=== PATIENT | female | born 2005 | race African-American/Black ===

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

== ENCOUNTER 2025-08-18 05:26 | Inpatient (IN) ==
--- NOTE | 2025-08-10 16:05 | Anesthesiology Consultation ---
Date of Service August 10, 2025 Assessment & Plan (1) Encounter for pre-operative examination: - Per pump tender on 08/10/25: No known infectious disease contacts, current infectious disease symptoms in past 10 days or COVID positive test result in the past 30 days. Chart Review Chart Review: entry operator initiated History Surgery Operation Date: 08/18/25 07:30 Proposed Procedures p Section (Delivery of Baby Through Abdominal Incision) - Shanika Marrero MD, FACOG Height/Weight Height: 5 ft 2 in Weight: 96.162 kg Allergies Allergy/AdvReac Type Severity Reaction Status Date / Time tree nut Allergy Unknown Swelling Verified 08/10/25 15:35 of Lip/Tongue/Throat Medications Home Medications Medication Instructions Recorded Confirmed Last Taken metoclopramide HCl 10 mg tablet 10 mg PO Q6H PRN headache #5 tabs 06/16/25 08/10/25 Unknown vits no.133-ferrous 1 tab PO DAILY 08/10/25 08/10/25 Unknown fumarate 28 mg-folic acid 800 mcg tablet () Past Medical History Medical History (Updated 08/10/25 @ 16:04 by Margi Poon PA-C) Generalized headaches infrequent Past Family History Family History Denies family history of Ovarian cancer Breast cancer Colorectal cancer Past Surgical History Surgical History History of Social History Smoking Status: Never smoker Do You Dip or Chew Tobacco: No Hx Alcohol Use: No Hx Substance Use: No substance use type: does not use Lab Results Anesthesia Preop Results Results Anesthesia Widget: Hgb 13.5 g/dl (12.0-16.0) 06/14/25 Hct 40.4 % (37.0-47.0) 06/14/25 Urine Color Yellow 06/14/25 Urine Appearance Turbid (Clear) A 06/14/25 Urine pH 6.0 (4.5-7.5) 06/14/25 Urine Specific [place] 1.028 (1.000-1.030) 06/14/25 Urine Protein Trace (Negative) H 06/14/25 Urine Glucose (UA) Negative (Negative) 06/14/25 Urine Ketones Trace (Negative) H 06/14/25 Urine Blood Negative (Negative) 06/14/25 Urine Nitrite Negative (Negative) 06/14/25 Urine Bilirubin Negative (Negative) 06/14/25 Urine Urobilinogen Negative (Negative) 06/14/25 Urine Leukocyte Esterase Negative (Negative) 06/14/25 Urine WBC (Auto) 0-5 /hpf (0-5) 06/14/25 Urine RBC (Auto) 0-2 /hpf (0-2) 06/14/25 Urine Hyaline Casts (Auto) 0-2 /lpf (0-2) 06/14/25 Urine Epithelial Cells (Auto) 0-2 /hpf (0-2) 06/14/25 Urine Bacteria (Auto) None Seen (None Seen) 06/14/25
--- NOTE | 2025-08-17 20:14 | History & Physical Report ---
Date of Service August 17, 2025 Assessment & Plan (1) 39 weeks gestation of : (2) Previous delivery affecting , antepartum: Plan Patient will be admitted on day of delivery for planned repeat c/s. Consent reviewed and signed. Preop and postop instructions reviewed. Labs am of surgery. History of Present Illness Chief Complaint: planned repeat c/s Primary Care Provider: Matt Fried MD 19yo at 39+wks ega presents on day of admission of planned repeat c/s. Patient denies ctx, rom or vb. +FM. PNC c/b 1. prior c/s, desires repeat c/s PNL rhpos, ri, gbs neg OBH: g1, c/s x 1 GY[facility]: prior h/o CT Allergies Allergy/AdvReac Type Severity Reaction Status Date / Time tree nut Allergy Unknown Swelling Verified 08/17/25 11:41 of Lip/Tongue/Throat Home Medications Medication Instructions Recorded Confirmed Type metoclopramide HCl 10 mg tablet 10 mg PO Q6H PRN headache #5 tabs 06/16/25 08/17/25 Rx vits no.133-ferrous 1 tab PO DAILY 08/10/25 08/17/25 History fumarate 28 mg-folic acid 800 mcg tablet () Patient History Medical History Generalized headaches infrequent Surgical History History of Family History Denies family history of Ovarian cancer Breast cancer Colorectal cancer Social History (Updated 01/20/25 @ 09:52 by Federica Finnegan) Smoking Status: Never smoker Do You Dip or Chew Tobacco: No; Hx Alcohol Use: No Hx Substance Use: No Preferred Language: Welsh Communication Ability: Effective Compliance Officer Required: No Beliefs That Will Affect Care: None marital status: Single marital status details: erica Asif (23) [phone] Current Living Situation: Family and Significant Other Current Living Situation Comment: lives with fob, daughter, dog, cat-fob changing litter 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
[2025-08-18] MEDS ORDERED: SODIUM CHLORIDE 0.9% 100 ML IV PRN (05:49)
[2025-08-18] MEDS ORDERED: INFLUENZA VACC TS2025-26(6m+)/PF (IIV3) 0.5mL Syr IM ONE (05:49)
[2025-08-18] MEDS: LACTATED RINGER'S 1,000 ML IV SCH ×2 (05:52→06:53)
[2025-08-18] MEDS: ACETAMINOPHEN 500 MG TAB PO SCH (06:03)
[2025-08-18 06:04] LABS: Hematocrit (blood only) 37.3 % (37.0-47.0); Hemoglobin 12.3 g/dl (12.0-16.0); Mean Corpuscular Hemoglobin 29.8 pg (25.0-34.0); Mean Corpuscular Volume 90.3 fL (80.0-100.0); Platelet Count 190 K/uL (130-400); RDW Standard Deviation 43.4 fL (36.4-46.3); Red Blood Count 4.13 M/uL (4.20-5.40); White Blood Count 8.41 K/ul (4.8-10.8)
[2025-08-18] MEDS ORDERED: DEXAMETHASONE SOD INJ 4 MG/ML VIAL ONE (06:27)
[2025-08-18] MEDS ORDERED: MoRPHine SULFATE PF 1 MG/ML 10 ML AMP/VIAL ONE (06:27)
[2025-08-18] MEDS ORDERED: PHENYLEPHRINE HCL 25 MG/250 ML NSS IV ONE (06:27)
[2025-08-18] MEDS ORDERED: OXYTOCIN 10 UNITS/ML VIAL ONE (06:27)
[2025-08-18] MEDS ORDERED: ONDANSETRON INJ 2 MG/ML 2 ML VIAL ONE (06:27)
--- NOTE | 2025-08-18 07:20 | History & Physical Bridge Note ---
Date of Service August 18, 2025 History & Physical Bridge Note I have examined the patient, reviewed the History & Physical and in the interval since the performance of the History & Physical I have noted the following changes of clinical significance: no changes noted
[2025-08-18] MEDS: CITRIC ACID/SODIUM CITRATE 15 ML UDC PO SCH (07:27)
[2025-08-18] MEDS ORDERED: NALOXONE HCL 1 MG in SODIUM CHLORIDE 0.9% 1,000 ML IV PRN (07:55)
[2025-08-18] MEDS ORDERED: PROMETHAZINE 6.25 MG/50.25 ML BAG IV PRN (07:55)
[2025-08-18] MEDS ORDERED: LACTATED RINGER'S 500 ML IV PRN (07:55)
[2025-08-18] MEDS ORDERED: NALOXONE HCL 0.4 MG/1 ML VIAL/CARP IV PRN (07:55)
[2025-08-18] MEDS ORDERED: diphenhydrAMINE 50 MG/ML VIAL IV PRN (07:55)
[2025-08-18] MEDS ORDERED: NALBUPHINE HCL INJ 10 MG/ML AMP IV PRN (07:55)
[2025-08-18] MEDS ORDERED: NALOXONE HCL 0.08 MG in SYRINGE 1.8 ML IV PRN (07:55)
[2025-08-18] MEDS ORDERED: ONDANSETRON INJ 2 MG/ML 2 ML VIAL IV PRN (07:55)
[2025-08-18] MEDS ORDERED: MoRPHine SULFATE PF 1 MG/ML 10 ML AMP/VIAL INT SPINAL ONE (07:55)
[2025-08-18] MEDS ORDERED: DC INTRASPINAL MORPHINE SCH (08:00)
[2025-08-18] MEDS ORDERED: PHENYLEPHRINE 100MCG/ML 5ML SYR ONE (08:00)
[2025-08-18] MEDS ORDERED: SODIUM CHLORIDE 0.9% 1,000 ML IV SCH (08:00)
[2025-08-18] MEDS ORDERED: NO NARCOTICS OR SEDATIVES SCH (08:00)
--- NOTE | 2025-08-18 08:36 | Operative Report ---
Post Operative Report Pre & Post Diagnosis Operation Date: 08/18/25 07:30 Pre-Op Diagnosis: (1) 39 weeks gestation of : (2) Previous delivery affecting , antepartum (3) Desires repeat section Post-Op Diagnosis: (1) 39 weeks gestation of : (2) Previous delivery affecting , antepartum: (3) Desires repeat section I identified the patient and participated in the time-out.: Yes Procedure Operation Date: 08/18/25 07:30 Actual Procedures p Repeat Low Transverse Section (Delivery of Baby Through Abdominal Incision) Delivery of live female child at 0758 - Shanika Marrero MD, FACOG Surgeon Shanika Marrero MD, FACOG Sap Specialist Vielka Quantitative Blood Loss (QBL) 423 Findings Consistent with Post-Op Diagnosis (viable female, apgars pending, normal uterus tubes and ovaries bilaterally) Fluids 1000cc Specimens cord blood Drains moss Anesthesia Type Spinal Complications none Disposition Accompanied Patient To Recovery: No Disposition: L&D Indications 19yo at 39+wks for planned repeat c/s. Description of Procedure The patient was taken to the operating room and identified. After adequate anesthesia was obtained, she was placed in the supine position with a leftward tilt on the operating table and prepped and draped in the usual sterile fashion. A moss catheter had already been placed. The knife was used to create a Pfannensteil skin incision that was carried down to the underlying layer of fascia. The fascia was nicked in the midline and this opening was extended laterally using Godoy scissors. Karan clamps were placed on the superior and inferior aspect of the fascial incision tenting it upward and the underlying rectus muscles were dissected off the overlying fascia both sharply and bluntly using Godoy scissors. The rectus muscles were bluntly in the midline. The peritoneal cavity was bluntly entered into. This opening was stretched. The bladder blade was placed. The vesicouterine peritoneum was elevated and opened up into and the bladder flap was created digitally and bladder blade was replaced. The knife was used to create a hysterotomy and this opening was stretched. The operators hand was placed through the hysterotomy and the bladder blade was removed. The head was elevated and flexed and with fundal pressure the head was delivered. The shoulders and body were rapidly delivered. The cord was clamped and cut and the 's mouth and nares were bulb suction. The was handed off to the awaiting pediatricians. Cord blood was obtained. The placenta was manually expressed. The uterus was e xteriorized and cleared of all clots and debris. Dilute IV Pitocin was begun. The uterine tone was improving. The hysterotomy was closed in a running interlocking fashion using 0 Vicryl followed by a second imbricating layer of 0 Vicryl. The hysterotomy was hemostatic. The pelvis was irrigated. The uterus was returned to the abdomen. The gutters were cleared of all clots and debris. The hysterotomy was reinspected and noted to be hemostatic. The fascia was then closed in running fashion using 0 Vicryl. The subcutaneous fat was copiously irrigated and reapproximated using 2-0 chromic. The skin was closed in a subcuticular fashion using 4-0 monocryl. At this point the procedure was terminated. The patient was transferred to the recovery room in stable condition. All sponge, lap and needle counts are correct x2. I attest to the content of the Intraoperative Record and any orders documented therein. Any exceptions are noted below. OB Procedure Charges 54751
[2025-08-18] MEDS ORDERED: BENZOCAINE 20% SPRY 85 APPLN/85 GM CAN EXT PRN (08:56)
[2025-08-18] MEDS ORDERED: SENNA 8.6 MG TAB PO PRN (08:56)
[2025-08-18] MEDS ORDERED: MAGNESIUM HYDROXIDE SUSP 30 ML UDC PO PRN (08:56)
[2025-08-18] MEDS ORDERED: CALCIUM CARBONATE 500 MG CHEWABLE TAB PO PRN (08:56)
[2025-08-18] MEDS ORDERED: HYDROCORTISONE ACETATE 25 MG SUPP PR PRN (08:56)
[2025-08-18] MEDS ORDERED: LACTATED RINGER'S 1,000 ML IV SCH (09:00)
[2025-08-18] MEDS: DIPHTHER/TETAN/PERTUS Vaccine (Tdap, Adol/Adult) 0.5mL IM ONE (09:20)
[2025-08-18] MEDS: KETOROLAC 30 MG/ML VIAL IV SCH (09:26)
[2025-08-18] MEDS: OXYTOCIN 20 UNITS/LR 1,002 ML IV SCH (09:55)
[2025-08-18] MEDS: METHYLERGONOVINE MALEATE 0.2 MG/ML AMP ONE (10:24)
--- NOTE | 2025-08-18 10:36 | Obstetrical Progress Note ---
Date of Service August 18, 2025 Assessment & Plan (1) S/P section: (2) Uterine atony: Plan will see how uterus responds to additional agents and sweeping out blood clots at os. await cbc. likely with OR blood loss about 1100cc total so far. Admission and Anticipated Discharge Date Admission Date: August 18, 2025 Subjective ctsp due to vaginal bleeding. she is on dilute pit. about 350cc on chux on my arrival Review of Systems Constitutional: as per Subjective / HPI (denies lightheadedness or dizziness. ) Physical Exam Constitutional: WD/WN, vitals as above Genitourinary: OB Exam Abdomen: + fundal height (firm and 2-3cm below umbilicus. ) bedside exam BOSTON with clots, extruded about 250cc more. rectal cytotec placed 1000mcg and im methergine 0.2mg given, dilute pit infusion increased. cbc ordered. t&s so far in place. Results & Data Vital Signs (Past 12 Hours) Vital Signs Temp Pulse Resp BP Pulse Ox O2 Del Method 08/18/25 10:28 79 100 08/18/25 10:22 73 105/73 93 08/18/25 10:21 71 100 08/18/25 10:18 70 113/75 08/18/25 10:16 71 99 08/18/25 10:11 75 100 08/18/25 10:06 81 100 08/18/25 10:01 80 96 08/18/25 09:56 67 99 08/18/25 09:51 70 99 08/18/25 09:49 77 123/62 08/18/25 09:46 62 99 08/18/25 09:45 97.7 F 69 16 123/62 99 08/18/25 09:41 88 99 08/18/25 09:36 80 100 08/18/25 09:35 97.5 F L 80 14 95/53 L 97 08/18/25 09:35 61 95/53 L 08/18/25 09:31 84 100 08/18/25 09:26 99 08/18/25 09:26 90 08/18/25 09:26 81 104/55 L 08/18/25 09:25 97.7 F 81 16 104/55 L 100 08/18/25 09:21 87 99 08/18/25 09:16 83 105/60 98 08/18/25 09:15 97.5 F L 92 H 16 105/60 100 08/18/25 09:11 82 99 08/18/25 09:06 87 105/61 96 08/18/25 09:05 97.5 F L 96 H 18 105/61 98 08/18/25 09:01 98 H 100 08/18/25 08:56 86 97 08/18/25 08:55 97.7 F 92 H 16 106/55 L 98 08/18/25 08:55 96 H 106/55 L 08/18/25 08:51 94 H 99 08/18/25 08:46 99 08/18/25 08:46 93 H 08/18/25 08:46 75 101/54 L 08/18/25 08:45 97.7 F 94 H 18 101/54 L 99 08/18/25 08:41 79 101/49 L 99 08/18/25 07:24 80 130/74 08/18/25 06:59 Room Air 08/18/25 05:40 97.9 F 18 08/18/25 05:36 71 122/71 PG Care Time/CCT Total # of Minutes Spent Total Time Spent with Patient: Total time spent is greater than 50% in coordination of care (as documented) at patient's floor/unit and/or counseling patient: Coding Level of Care Code None Diagnoses S/P section Z98.891 Uterine atony O62.2
[2025-08-18 10:57] LABS: Hematocrit (blood only) 39.1 % (37.0-47.0); Hemoglobin 12.9 g/dl (12.0-16.0); Mean Corpuscular Hemoglobin 30.1 pg (25.0-34.0); Mean Corpuscular Volume 91.4 fL (80.0-100.0); Platelet Count 193 K/uL (130-400); RDW Standard Deviation 43.6 fL (36.4-46.3); Red Blood Count 4.28 M/uL (4.20-5.40); White Blood Count 9.42 K/ul (4.8-10.8)
--- NOTE | 2025-08-18 11:44 | Obstetrical Progress Note ---
Date of Service August 18, 2025 Assessment & Plan (1) Uterine atony: (2) S/P section: Plan adelso in place. will monitor bleeding, if after one hr, no significant blood in canister or suction. will stop suction and deflate balloon in vagina and observe. pt and partner aware of all of this. they are aware of hgb thus far. Admission and Anticipated Discharge Date Admission Date: August 18, 2025 Subjective reeval of bleeding, with continued clots and blood. last check bleeding was lessening at 89cc, but now ? if worsening. Physical Exam Genitourinary: bedside exam, sve, with BOSTON not contracted and clots, despite ff 2 down, informed consent obtained to proceed with adelso device, device placed balloon inflated, 60cc. to wall suctioned with minimal return of blood to tubing. device checked for placement and was adequate. hgb did return 12.9 Results & Data Vital Signs (Past 12 Hours) Vital Signs Temp Pulse Resp BP Pulse Ox O2 Del Method 08/18/25 11:36 69 91 08/18/25 11:35 97.5 F L 75 16 130/67 96 08/18/25 11:34 81 97 08/18/25 11:33 75 130/67 08/18/25 11:29 77 100 08/18/25 11:28 66 92 08/18/25 11:24 72 100 08/18/25 11:22 76 121/81 08/18/25 11:21 79 91 08/18/25 11:20 97.5 F L 72 12 121/81 100 08/18/25 11:19 77 97 08/18/25 11:14 69 93 08/18/25 11:13 77 99 08/18/25 11:08 95 H 100 08/18/25 11:05 72 92 08/18/25 11:03 88 100 08/18/25 10:58 68 95 08/18/25 10:57 72 92 08/18/25 10:53 78 100 08/18/25 10:51 88 90 08/18/25 10:48 100 08/18/25 10:48 72 08/18/25 10:48 81 106/78 08/18/25 10:44 71 107/76 08/18/25 10:43 67 100 08/18/25 10:40 81 90 08/18/25 10:38 69 107/77 98 08/18/25 10:33 72 100 08/18/25 10:28 79 100 08/18/25 10:22 73 105/73 93 08/18/25 10:21 71 100 08/18/25 10:18 70 113/75 08/18/25 10:16 71 99 08/18/25 10:11 75 100 08/18/25 10:06 81 100 08/18/25 10:01 80 96 08/18/25 09:56 67 99 08/18/25 09:51 70 99 08/18/25 09:49 77 123/62 08/18/25 09:46 62 99 08/18/25 09:45 97.7 F 69 16 123/62 99 08/18/25 09:41 88 99 08/18/25 09:36 80 100 08/18/25 09:35 97.5 F L 80 14 95/53 L 97 08/18/25 09:35 61 95/53 L 08/18/25 09:31 84 100 08/18/25 09:26 99 08/18/25 09:26 90 08/18/25 09:26 81 104/55 L 08/18/25 09:25 97.7 F 81 16 104/55 L 100 08/18/25 09:21 87 99 08/18/25 09:16 83 105/60 98 08/18/25 09:15 97.5 F L 92 H 16 105/60 100 08/18/25 09:11 82 99 08/18/25 09:06 87 105/61 96 08/18/25 09:05 97.5 F L 96 H 18 105/61 98 08/18/25 09:01 98 H 100 08/18/25 08:56 86 97 08/18/25 08:55 97.7 F 92 H 16 106/55 L 98 08/18/25 08:55 96 H 106/55 L 08/18/25 08:51 94 H 99 08/18/25 08:46 99 08/18/25 08:46 93 H 08/18/25 08:46 75 101/54 L 08/18/25 08:45 97.7 F 94 H 18 101/54 L 99 08/18/25 08:41 79 101/49 L 99 08/18/25 07:24 80 130/74 08/18/25 06:59 Room Air 08/18/25 05:40 97.9 F 18 08/18/25 05:36 71 122/71 PG Care Time/CCT Total # of Minutes Spent Total Time Spent with Patient: Total time spent is greater than 50% in coordination of care (as documented) at patient's floor/unit and/or counseling patient: Coding Level of Care Code None Diagnoses Uterine atony O62.2 S/P section Z98.891
--- NOTE | 2025-08-18 12:36 | Obstetrical Progress Note ---
Date of Service August 18, 2025 Assessment & Plan Admission and Anticipated Discharge Date Admission Date: August 18, 2025 Subjective Patient sitting in bed, awake, comfortable. Vitals stable. 35cc total QBL after insertion of Evelin. at 12:30p, Evelin balloon deflated and taken off suction. Will continue to monitor. Results & Data Vital Signs (Past 12 Hours) Vital Signs Temp Pulse Resp BP Pulse Ox O2 Del Method 08/18/25 12:34 86 100 08/18/25 12:29 78 100 08/18/25 12:24 82 100 08/18/25 12:21 84 131/63 08/18/25 12:19 81 100 08/18/25 12:14 83 100 08/18/25 12:09 89 100 08/18/25 12:05 36.5 C 86 14 120/57 L 100 08/18/25 12:05 90 120/57 L 08/18/25 12:04 87 100 08/18/25 11:59 83 100 08/18/25 11:54 86 100 08/18/25 11:50 36.4 C L 90 16 132/58 L 100 08/18/25 11:50 76 132/58 L 08/18/25 11:49 76 100 08/18/25 11:44 84 100 08/18/25 11:41 74 90 08/18/25 11:39 79 100 08/18/25 11:36 69 91 08/18/25 11:35 36.4 C L 75 16 130/67 96 08/18/25 11:34 81 97 08/18/25 11:33 75 130/67 08/18/25 11:29 77 100 08/18/25 11:28 66 92 08/18/25 11:24 72 100 08/18/25 11:22 76 121/81 08/18/25 11:21 79 91 08/18/25 11:20 36.4 C L 72 12 121/81 100 08/18/25 11:19 77 97 08/18/25 11:14 69 93 08/18/25 11:13 77 99 08/18/25 11:08 95 H 100 08/18/25 11:05 72 92 08/18/25 11:03 88 100 08/18/25 10:58 68 95 08/18/25 10:57 72 92 08/18/25 10:53 78 100 08/18/25 10:51 88 90 08/18/25 10:48 100 08/18/25 10:48 72 08/18/25 10:48 81 106/78 08/18/25 10:44 71 107/76 08/18/25 10:43 67 100 08/18/25 10:40 81 90 08/18/25 10:38 69 107/77 98 08/18/25 10:33 72 100 08/18/25 10:28 79 100 08/18/25 10:22 73 105/73 93 08/18/25 10:21 71 100 08/18/25 10:18 70 113/75 08/18/25 10:16 71 99 08/18/25 10:11 75 100 08/18/25 10:06 81 100 08/18/25 10:01 80 96 08/18/25 09:56 67 99 08/18/25 09:51 70 99 08/18/25 09:49 77 123/62 08/18/25 09:46 62 99 08/18/25 09:45 36.5 C 69 16 123/62 99 08/18/25 09:41 88 99 08/18/25 09:36 80 100 08/18/25 09:35 36.4 C L 80 14 95/53 L 97 08/18/25 09:35 61 95/53 L 08/18/25 09:31 84 100 08/18/25 09:26 99 08/18/25 09:26 90 08/18/25 09:26 81 104/55 L 08/18/25 09:25 36.5 C 81 16 104/55 L 100 08/18/25 09:21 87 99 08/18/25 09:16 83 105/60 98 08/18/25 09:15 36.4 C L 92 H 16 105/60 100 08/18/25 09:11 82 99 08/18/25 09:06 87 105/61 96 08/18/25 09:05 36.4 C L 96 H 18 105/61 98 08/18/25 09:01 98 H 100 08/18/25 08:56 86 97 08/18/25 08:55 36.5 C 92 H 16 106/55 L 98 08/18/25 08:55 96 H 106/55 L 08/18/25 08:51 94 H 99 08/18/25 08:46 99 08/18/25 08:46 93 H 08/18/25 08:46 75 101/54 L 08/18/25 08:45 36.5 C 94 H 18 101/54 L 99 08/18/25 08:41 79 101/49 L 99 08/18/25 07:24 80 130/74 08/18/25 06:59 Room Air 08/18/25 05:40 36.6 C 18 08/18/25 05:36 71 122/71 PG Care Time/CCT Total # of Minutes Spent Total Time Spent with Patient: Total time spent is greater than 50% in coordination of care (as documented) at patient's floor/unit and/or counseling patient: Coding Level of Care Code None
[2025-08-18] MEDS: METHYLERGONOVINE MALEATE 0.2 MG/ML AMP IM STA (13:07)
[2025-08-18] MEDS: HYDROmorphone INJ 0.5 MG/0.5 ML SYR IV PRN (14:26)
--- NOTE | 2025-08-18 15:09 | Obstetrical Progress Note ---
Date of Service August 18, 2025 Assessment & Plan (1) S/P section: (2) hemorrhage: (3) Uterine atony: Plan ok to move to floor. enc po fluids. leave moss in for now and at 6pm can see if ok to remove. pt agreeable. Admission and Anticipated Discharge Date Admission Date: August 18, 2025 Subjective pt feels well, drinking water. bleeding greatly decreased and adelso has been not on suction for >2hrs. Physical Exam Constitutional: WD/WN, vitals as above Genitourinary: ADELSO removed. pt kayleigh well. moss in place, last 3hr urine out is 100cc Results & Data Vital Signs (Past 12 Hours) Vital Signs Temp Pulse Resp BP Pulse Ox O2 Del Method 08/18/25 14:57 80 88 L 08/18/25 14:54 73 100 08/18/25 14:50 85 123/70 08/18/25 14:49 82 100 08/18/25 14:44 88 100 08/18/25 14:39 81 100 08/18/25 14:35 77 16 125/76 100 08/18/25 14:35 82 125/76 08/18/25 14:34 78 100 08/18/25 14:29 91 H 100 08/18/25 14:24 86 100 08/18/25 14:20 98 H 16 133/78 100 08/18/25 14:20 92 H 133/78 08/18/25 14:19 97 H 100 08/18/25 14:14 85 100 08/18/25 14:09 92 H 100 08/18/25 14:05 84 16 124/71 100 08/18/25 14:05 80 124/71 08/18/25 14:04 87 100 08/18/25 13:59 76 100 08/18/25 13:54 86 100 08/18/25 13:50 97.7 F 89 14 122/66 100 08/18/25 13:50 74 122/66 08/18/25 13:49 75 100 08/18/25 13:44 84 100 08/18/25 13:39 92 H 100 08/18/25 13:35 85 16 122/69 100 08/18/25 13:35 77 122/69 08/18/25 13:34 78 100 08/18/25 13:29 81 100 08/18/25 13:24 82 100 08/18/25 13:20 84 16 139/66 100 08/18/25 13:20 78 139/66 08/18/25 13:19 81 100 08/18/25 13:14 79 100 08/18/25 13:09 92 H 100 08/18/25 13:05 90 14 134/70 100 08/18/25 13:05 94 H 134/70 08/18/25 13:04 94 H 100 08/18/25 12:59 83 100 08/18/25 12:54 87 100 08/18/25 12:52 80 131/63 08/18/25 12:50 97.7 F 80 16 131/63 100 08/18/25 12:49 82 100 08/18/25 12:44 78 100 08/18/25 12:39 89 100 08/18/25 12:35 76 16 146/66 H 100 08/18/25 12:35 86 146/66 H 08/18/25 12:34 86 100 08/18/25 12:29 78 100 08/18/25 12:24 82 100 08/18/25 12:21 84 131/63 08/18/25 12:20 84 16 131/63 100 08/18/25 12:19 81 100 08/18/25 12:14 83 100 08/18/25 12:09 89 100 08/18/25 12:05 97.7 F 86 14 120/57 L 100 08/18/25 12:05 90 120/57 L 08/18/25 12:04 87 100 08/18/25 11:59 83 100 08/18/25 11:54 86 100 08/18/25 11:50 97.5 F L 90 16 132/58 L 100 08/18/25 11:50 76 132/58 L 08/18/25 11:49 76 100 08/18/25 11:44 84 100 08/18/25 11:41 74 90 08/18/25 11:39 79 100 08/18/25 11:36 69 91 08/18/25 11:35 97.5 F L 75 16 130/67 96 08/18/25 11:34 81 97 08/18/25 11:33 75 130/67 08/18/25 11:29 77 100 08/18/25 11:28 66 92 08/18/25 11:24 72 100 08/18/25 11:22 76 121/81 08/18/25 11:21 79 91 08/18/25 11:20 97.5 F L 72 12 121/81 100 08/18/25 11:19 77 97 08/18/25 11:14 69 93 08/18/25 11:13 77 99 08/18/25 11:08 95 H 100 08/18/25 11:05 72 92 08/18/25 11:03 88 100 08/18/25 10:58 68 95 08/18/25 10:57 72 92 08/18/25 10:53 78 100 08/18/25 10:51 88 90 08/18/25 10:48 100 08/18/25 10:48 72 08/18/25 10:48 81 106/78 08/18/25 10:44 71 107/76 08/18/25 10:43 67 100 08/18/25 10:40 81 90 08/18/25 10:38 69 107/77 98 08/18/25 10:33 72 100 08/18/25 10:28 79 100 08/18/25 10:22 73 105/73 93 08/18/25 10:21 71 100 08/18/25 10:18 70 113/75 08/18/25 10:16 71 99 08/18/25 10:11 75 100 08/18/25 10:06 81 100 08/18/25 10:01 80 96 08/18/25 09:56 67 99 08/18/25 09:51 70 99 08/18/25 09:49 77 123/62 08/18/25 09:46 62 99 08/18/25 09:45 97.7 F 69 16 123/62 99 08/18/25 09:41 88 99 08/18/25 09:36 80 100 08/18/25 09:35 97.5 F L 80 14 95/53 L 97 08/18/25 09:35 61 95/53 L 08/18/25 09:31 84 100 08/18/25 09:26 99 08/18/25 09:26 90 08/18/25 09:26 81 104/55 L 08/18/25 09:25 97.7 F 81 16 104/55 L 100 08/18/25 09:21 87 99 08/18/25 09:16 83 105/60 98 08/18/25 09:15 97.5 F L 92 H 16 105/60 100 08/18/25 09:11 82 99 08/18/25 09:06 87 105/61 96 08/18/25 09:05 97.5 F L 96 H 18 105/61 98 08/18/25 09:01 98 H 100 08/18/25 08:56 86 97 08/18/25 08:55 97.7 F 92 H 16 106/55 L 98 08/18/25 08:55 96 H 106/55 L 08/18/25 08:51 94 H 99 08/18/25 08:46 99 08/18/25 08:46 93 H 08/18/25 08:46 75 101/54 L 08/18/25 08:45 97.7 F 94 H 18 101/54 L 99 08/18/25 08:41 79 101/49 L 99 08/18/25 07:24 80 130/74 08/18/25 06:59 Room Air 08/18/25 05:40 97.9 F 18 08/18/25 05:36 71 122/71 PG Care Time/CCT Total # of Minutes Spent Total Time Spent with Patient: Total time spent is greater than 50% in coordination of care (as documented) at patient's floor/unit and/or counseling patient: Coding Level of Care Code None Diagnoses S/P section Z98.891 hemorrhage O72.1 Uterine atony O62.2
[2025-08-18] MEDS: ACETAMINOPHEN 325 MG TAB PO SCH (16:08)
[2025-08-18] MEDS: SIMETHICONE 80 MG CHEW PO SCH (16:08)
--- NOTE | 2025-08-18 18:35 | Anesthesiology Progress Note ---
Date of Service August 18, 2025 Anesthesia Post Procedure Vital Signs Vital Signs: Temp Pulse Pulse Resp BP BP Pulse Ox 08/18/25 18:15 16 99 08/18/25 17:15 16 99 08/18/25 16:15 18 100 08/18/25 15:32 88 100 08/18/25 15:30 18 100 08/18/25 15:30 08/18/25 15:30 97.7 F 78 18 127/84 100 08/18/25 15:27 84 100 08/18/25 15:23 83 91 08/18/25 15:22 83 98 08/18/25 15:17 83 100 08/18/25 15:12 85 100 08/18/25 15:07 92 H 100 08/18/25 14:57 80 88 L 08/18/25 14:54 73 100 08/18/25 14:50 98.4 F 103 H 18 123/70 100 08/18/25 14:50 85 123/70 08/18/25 14:49 82 100 08/18/25 14:44 88 100 08/18/25 14:39 81 100 08/18/25 14:35 77 16 125/76 100 08/18/25 14:35 82 125/76 08/18/25 14:34 78 100 08/18/25 14:29 91 H 100 08/18/25 14:24 86 100 08/18/25 14:20 98 H 16 133/78 100 08/18/25 14:20 92 H 133/78 08/18/25 14:19 97 H 100 08/18/25 14:14 85 100 08/18/25 14:09 92 H 100 08/18/25 14:05 84 16 124/71 100 08/18/25 14:05 80 124/71 08/18/25 14:04 87 100 08/18/25 13:59 76 100 08/18/25 13:54 86 100 08/18/25 13:50 97.7 F 89 14 122/66 100 08/18/25 13:50 74 122/66 08/18/25 13:49 75 100 08/18/25 13:44 84 100 08/18/25 13:39 92 H 100 08/18/25 13:35 85 16 122/69 100 08/18/25 13:35 77 122/69 08/18/25 13:34 78 100 08/18/25 13:29 81 100 08/18/25 13:24 82 100 08/18/25 13:20 84 16 139/66 100 08/18/25 13:20 78 139/66 08/18/25 13:19 81 100 08/18/25 13:14 79 100 08/18/25 13:09 92 H 100 08/18/25 13:05 90 14 134/70 100 08/18/25 13:05 94 H 134/70 08/18/25 13:04 94 H 100 08/18/25 12:59 83 100 08/18/25 12:54 87 100 08/18/25 12:52 80 131/63 08/18/25 12:50 97.7 F 80 16 131/63 100 08/18/25 12:49 82 100 08/18/25 12:44 78 100 08/18/25 12:39 89 100 08/18/25 12:35 76 16 146/66 H 100 08/18/25 12:35 86 146/66 H 08/18/25 12:34 86 100 08/18/25 12:29 78 100 08/18/25 12:24 82 100 08/18/25 12:21 84 131/63 08/18/25 12:20 84 16 131/63 100 08/18/25 12:19 81 100 08/18/25 12:14 83 100 08/18/25 12:09 89 100 08/18/25 12:05 97.7 F 86 14 120/57 L 100 08/18/25 12:05 90 120/57 L 08/18/25 12:04 87 100 08/18/25 11:59 83 100 08/18/25 11:54 86 100 08/18/25 11:50 97.5 F L 90 16 132/58 L 100 08/18/25 11:50 76 132/58 L 08/18/25 11:49 76 100 08/18/25 11:44 84 100 08/18/25 11:41 74 90 08/18/25 11:39 79 100 08/18/25 11:36 69 91 08/18/25 11:35 97.5 F L 75 16 130/67 96 08/18/25 11:34 81 97 08/18/25 11:33 75 130/67 10/03/25 11:29 77 100 08/18/25 11:28 66 92 08/18/25 11:24 72 100 08/18/25 11:22 76 121/81 08/18/25 11:21 79 91 08/18/25 11:20 97.5 F L 72 12 121/81 100 08/18/25 11:19 77 97 08/18/25 11:14 69 93 08/18/25 11:13 77 99 08/18/25 11:08 95 H 100 08/18/25 11:05 72 92 08/18/25 11:03 88 100 08/18/25 10:58 68 95 08/18/25 10:57 72 92 08/18/25 10:53 78 100 08/18/25 10:51 88 90 08/18/25 10:48 100 08/18/25 10:48 72 08/18/25 10:48 81 106/78 08/18/25 10:44 71 107/76 08/18/25 10:43 67 100 08/18/25 10:40 81 90 08/18/25 10:38 69 107/77 98 08/18/25 10:33 72 100 08/18/25 10:28 79 100 08/18/25 10:22 73 105/73 93 08/18/25 10:21 71 100 08/18/25 10:18 70 113/75 08/18/25 10:16 71 99 08/18/25 10:11 75 100 08/18/25 10:06 81 100 08/18/25 10:01 80 96 08/18/25 09:56 67 99 08/18/25 09:51 70 99 08/18/25 09:49 77 123/62 08/18/25 09:46 62 99 08/18/25 09:45 97.7 F 69 16 123/62 99 08/18/25 09:41 88 99 08/18/25 09:36 80 100 08/18/25 09:35 97.5 F L 80 14 95/53 L 97 08/18/25 09:35 61 95/53 L 08/18/25 09:31 84 100 08/18/25 09:26 99 08/18/25 09:26 90 08/18/25 09:26 81 104/55 L 08/18/25 09:25 97.7 F 81 16 104/55 L 100 08/18/25 09:21 87 99 08/18/25 09:16 83 105/60 98 08/18/25 09:15 97.5 F L 92 H 16 105/60 100 08/18/25 09:11 82 99 08/18/25 09:06 87 105/61 96 08/18/25 09:05 97.5 F L 96 H 18 105/61 98 08/18/25 09:01 98 H 100 08/18/25 08:56 86 97 08/18/25 08:55 97.7 F 92 H 16 106/55 L 98 08/18/25 08:55 96 H 106/55 L 08/18/25 08:51 94 H 99 08/18/25 08:46 99 08/18/25 08:46 93 H 08/18/25 08:46 75 101/54 L 08/18/25 08:45 97.7 F 94 H 18 101/54 L 99 08/18/25 08:41 79 101/49 L 99 08/18/25 07:24 80 130/74 08/18/25 06:59 08/18/25 05:40 97.9 F 18 08/18/25 05:36 71 122/71 O2 Del Method 08/18/25 18:15 08/18/25 17:15 08/18/25 16:15 08/18/25 15:32 08/18/25 15:30 08/18/25 15:30 Room Air 08/18/25 15:30 Room Air 08/18/25 15:27 08/18/25 15:23 08/18/25 15:22 08/18/25 15:17 08/18/25 15:12 08/18/25 15:07 08/18/25 14:57 08/18/25 14:54 08/18/25 14:50 08/18/25 14:50 08/18/25 14:49 08/18/25 14:44 08/18/25 14:39 08/18/25 14:35 08/18/25 14:35 08/18/25 14:34 08/18/25 14:29 08/18/25 14:24 08/18/25 14:20 08/18/25 14:20 08/18/25 14:19 08/18/25 14:14 08/18/25 14:09 08/18/25 14:05 08/18/25 14:05 08/18/25 14:04 08/18/25 13:59 08/18/25 13:54 08/18/25 13:50 08/18/25 13:50 08/18/25 13:49 08/18/25 13:44 08/18/25 13:39 08/18/25 13:35 08/18/25 13:35 08/18/25 13:34 08/18/25 13:29 08/18/25 13:24 08/18/25 13:20 08/18/25 13:20 08/18/25 13:19 08/18/25 13:14 08/18/25 13:09 08/18/25 13:05 08/18/25 13:05 08/18/25 13:04 08/18/25 12:59 08/18/25 12:54 08/18/25 12:52 08/18/25 12:50 08/18/25 12:49 08/18/25 12:44 08/18/25 12:39 08/18/25 12:35 08/18/25 12:35 08/18/25 12:34 08/18/25 12:29 08/18/25 12:24 08/18/25 12:21 08/18/25 12:20 08/18/25 12:19 08/18/25 12:14 08/18/25 12:09 08/18/25 12:05 08/18/25 12:05 08/18/25 12:04 08/18/25 11:59 08/18/25 11:54 08/18/25 11:50 08/18/25 11:50 08/18/25 11:49 08/18/25 11:44 08/18/25 11:41 08/18/25 11:39 08/18/25 11:36 08/18/25 11:35 08/18/25 11:34 08/18/25 11:33 08/18/25 11:29 08/18/25 11:28 08/18/25 11:24 08/18/25 11:22 08/18/25 11:21 08/18/25 11:20 08/18/25 11:19 08/18/25 11:14 08/18/25 11:13 08/18/25 11:08 08/18/25 11:05 08/18/25 11:03 08/18/25 10:58 08/18/25 10:57 08/18/25 10:53 08/18/25 10:51 08/18/25 10:48 08/18/25 10:48 08/18/25 10:48 08/18/25 10:44 08/18/25 10:43 08/18/25 10:40 08/18/25 10:38 08/18/25 10:33 08/18/25 10:28 08/18/25 10:22 08/18/25 10:21 08/18/25 10:18 08/18/25 10:16 08/18/25 10:11 08/18/25 10:06 08/18/25 10:01 08/18/25 09:56 08/18/25 09:51 08/18/25 09:49 08/18/25 09:46 08/18/25 09:45 08/18/25 09:41 08/18/25 09:36 08/18/25 09:35 08/18/25 09:35 08/18/25 09:31 08/18/25 09:26 08/18/25 09:26 08/18/25 09:26 08/18/25 09:25 08/18/25 09:21 08/18/25 09:16 08/18/25 09:15 08/18/25 09:11 08/18/25 09:06 08/18/25 09:05 08/18/25 09:01 08/18/25 08:56 08/18/25 08:55 08/18/25 08:55 08/18/25 08:51 08/18/25 08:46 08/18/25 08:46 08/18/25 08:46 08/18/25 08:45 08/18/25 08:41 08/18/25 07:24 08/18/25 06:59 Room Air 08/18/25 05:40 10/03/25 05:36 Pain Intensity Abdomen: Pain Intensity: 2 Transfer of Care Handoff Completed per policy Notes Mental Status: alert / awake / arousable and participated in evaluation Patient Amnestic to Procedure: Yes Nausea / Vomiting: adequately controlled Pain: adequately controlled Airway Patency, RR, SpO2: stable & adequate BP & HR: stable & adequate Hydration State: stable & adequate Neuraxial Anesthesia: was administered and sensory block is resolving Anesthetic Complications: no major complications apparent and Pt Satisfied with anesthetic care Notes: PPH postoperatively, Evelin placed by OB and resolved
[2025-08-18] MEDS: DOCUSATE SODIUM 100 MG CAP PO SCH (20:55)
[2025-08-19] MEDS ORDERED: PROMETHAZINE 12.5 MG/50.5 ML BAG IV PRN (01:56)
[2025-08-19] MEDS ORDERED: ZOLPIDEM TARTRATE 5 MG TAB PO PRN (01:56)
[2025-08-19] MEDS ORDERED: HYDROmorphone INJ 0.5 MG/0.5 ML SYR IV PRN (01:56)
[2025-08-19] MEDS ORDERED: diphenhydrAMINE 50 MG/ML VIAL IV PRN (01:56)
[2025-08-19] MEDS ORDERED: ONDANSETRON INJ 2 MG/ML 2 ML VIAL IV PRN (01:56)
[2025-08-19] MEDS ORDERED: diphenhydrAMINE Capsule 25 MG CAP PO PRN (01:56)
[2025-08-19 03:02] VITALS: RESP 16
[2025-08-19 06:57] LABS: Hematocrit (blood only) 29.7 % (37.0-47.0); Hemoglobin 9.9 g/dl (12.0-16.0); Immature Granulocytes # (auto) 0.17 K/uL (0.01-0.20); Immature Granulocytes % (auto) 1.4 %; Mean Corpuscular Hemoglobin 30.5 pg (25.0-34.0); Mean Corpuscular Volume 91.4 fL (80.0-100.0); Platelet Count 170 K/uL (130-400); RDW Standard Deviation 43.2 fL (36.4-46.3); Red Blood Count 3.25 M/uL (4.20-5.40); White Blood Count 12.02 K/ul (4.8-10.8)
--- NOTE | 2025-08-19 07:36 | Obstetrical Progress Note ---
Date of Service August 19, 2025 Assessment & Plan (1) care following delivery: stable, routine care. rhpos, ri, breast feeding. pain well controlled. hgb noted. no issues with bleeding. Day #:: 1 Subjective Ambulation: ambulating normally Voiding: no voiding problems Passing Gas:: Yes Diet Tolerance:: regular diet Lochia:: Small Feeding Type:: breast feeding no pain issues. doing well. Constitutional: + as per Subjective / HPI Physical Exam Constitutional WD/WN, vitals as above Respiratory normal respiratory effort, lungs clear to auscultation Cardiovascular Rate/Rhythm: regular rate and regular rhythm Gastrointestinal (Abdomen) Inspection/Auscultation: abdomen normal to inspection and + abdominal surgical incision (c/d/i) Percussion/Palpation: abdomen soft Fundus firm 2cm down Musculoskeletal nt calves [] edema Neurologic grossly normal Psychiatric A+Ox3, euthymic affect Results & Data Vital Signs (Past 12 Hours) Vital Signs Temp Pulse Resp BP Pulse Ox O2 Del Method 08/19/25 03:01 98.1 F 75 16 110/72 98 Room Air 08/19/25 03:00 19 99 08/19/25 02:00 18 99 08/19/25 01:00 14 99 08/19/25 00:00 18 98 08/18/25 23:07 98.1 F 81 18 102/69 99 Room Air 08/18/25 23:00 18 99 08/18/25 22:00 16 99 08/18/25 21:00 16 98 08/18/25 20:00 16 99
[2025-08-19] MEDS: FERROUS SULFATE 325 MG TAB PO SCH (07:57)
[2025-08-19] MEDS: PRENATAL VITAMIN 1 TAB PO SCH (07:57)
[2025-08-19] MEDS: IBUPROFEN 600 MG TAB PO SCH (09:23)
[2025-08-19] MEDS ORDERED: KETOROLAC 30 MG/ML VIAL IV PRN (09:30)
[2025-08-19 22:02] VITALS: O2SAT 98
[2025-08-19 23:00] VITALS: PULSE 76; TEMP 97.7
[2025-08-20 06:53] LABS: Hematocrit (blood only) 29.9 % (37.0-47.0); Hemoglobin 10.2 g/dl (12.0-16.0)
--- NOTE | 2025-08-20 07:49 | Obstetrical Progress Note ---
Date of Service August 20, 2025 Assessment & Plan (1) care following delivery: POD#2 doing well, desires DC home today. Rx #10 oxycodone tabs to [facility]. Reviewed postop instructions, followup in office 6w. Subjective Ambulation: ambulating normally Voiding: no voiding problems Diet Tolerance:: regular diet Lochia:: Moderate Review of Systems All systems reviewed & are unremarkable except as noted in HPI & below Physical Exam Constitutional WD/WN, vitals as above no acute distress Respiratory normal respiratory effort Cardiovascular Rate/Rhythm: regular rate and regular rhythm Gastrointestinal (Abdomen) Inspection/Auscultation: abdomen normal to inspection; abdomen not distended Percussion/Palpation: abdomen soft incision CDI Genitourinary OB Exam Abdomen: + fundal height Fundus: + firm; not tender Results & Data Vital Signs (Past 12 Hours) Vital Signs Temp Pulse Resp BP Pulse Ox O2 Del Method 08/19/25 22:58 36.5 C 76 16 107/68 98 Room Air 08/19/25 19:50 36.7 C 84 16 121/76 98 Room Air
[2025-08-20] MEDS ORDERED: IBUPROFEN 600 MG TAB PO PRN (09:30)
[2025-08-20 12:12] VITALS: BP 123/77
[2025-08-20] MEDS ORDERED: ACETAMINOPHEN 325 MG TAB PO PRN (15:30)
== END 2025-08-20 12:00 | disposition home or self-care (01) | DRG 787 ==
LOC: 4S1 05:26 → EDSTATUS 07:30 → 4E2 16:38